=== PATIENT | female | born 1995 | race Caucasian/White ===

== ENCOUNTER 2016-07-03 11:27 | Inpatient (IN) ==
--- NOTE | 2016-07-03 12:07 | Emergency Department Note ---
Disposition Clinical Impression: Depression, Suicidal ideation, Urinary tract infection Disposition: Admitted As Inpatient Condition: Good Referrals: NO,PCP [Primary Care Provider] - Forms: ED Satisfaction Letter Time of Disposition: 14:29 Psych HPI - General Chief Complaint: ED Psychiatric Symptoms Stated Complaint: SI Time Seen by Provider: 07/03/16 11:39 Source: patient Mode of arrival: ambulatory Nursing Notes Reviewed: Yes Vital Signs Reviewed: Yes - History of Present Illness HPI Narrative: 20 female presents emergency room for thoughts of hurting herself. Was sent in by her counselor today. Patient has had increased cutting to the left upper extremity as well as to the right thigh. Patient states she does want to hurt herself by cutting her wrists. This is ongoing for the past few days. She denies any drugs or alcohol. She has been compliant with her Lexapro. No other complaints at this time. She denies any homicidal thoughts. Pt complaint: suicidal ideation, feels depressed Onset (ago): day(s) Duration: constant History of similar episodes: Yes Improves with: none Worsens with: none Alleged intoxication: No Associated Psychiatric Symptoms: depression, suicidal ideation Associated symptoms: Reports: denies other symptoms Traumatic symptoms: denies traumatic injury Treatments prior to arrival: none Self harm or harm to others: admits thoughts of self harm, has plan - Related Data Previous Rx's Medication Instructions Recorded HYDROcodone/Acet 5/325 mg [[place] 1 tab PO Q4H PRN #25 tab 03/10/16 5-325 mg] Ibuprofen [Motrin] 600 mg PO Q6HR PRN #40 tablet 03/10/16 Ibuprofen [Motrin] 600 mg PO Q6HR PRN #60 tab 03/10/16 Allergies Allergy/AdvReac Type Severity Reaction Status Date / Time Amoxicillin [From Augmentin] Allergy Anaphylaxis Verified 07/03/16 11:28 clavulanic acid Allergy Anaphylaxis Verified 07/03/16 11:28 [From Augmentin] All systems ED: reviewed and negative except as stated. Constitutional: Reports: as per HPI Eyes: Reports: as per HPI Cardiovascular: Reports: as per HPI Respiratory: Reports: as per HPI Gastrointestinal: Reports: as per HPI Musculoskeletal: Reports: as per HPI Integumentary: Reports: as per HPI Neurological: Reports: as per HPI Psychiatric: Reports: depression, suicidal thoughts. Denies: homicidal thoughts Endocrine: Reports: as per HPI Hematological/Lymphatic: Reports: as per HPI Allergic/Immunologic: Reports: as per HPI Past Medical History - Past Medical History Medical history: Reports: no medical history Psychiatric history: Reports: anxiety - Social History Smoking Status: Current every day smoker Smokeless Tobacco Status: No Alcohol use: Reports: none Drug use: Reports: none Physical Exam - General Limitations: no limitations General appearance: alert, in no apparent distress - Head Head exam: atraumatic, normocephalic - Neck Neck exam: Present: normal inspection - Chest Chest inspection: Present: normal inspection, symmetric chest wall rise - Respiratory Respiratory exam: Present: normal lung sounds bilaterally - Cardiovascular Cardiovascular exam: Present: regular rate, normal rhythm - Abdominal Exam Abdominal exam: Present: soft, Non-Tender - Extremities Exam Extremities exam: Present: normal inspection - Expanded Lower Extremity Exam Hip/Pelvis exam: Present: normal inspection - Neurological Exam Neurological exam: Present: alert, oriented X3 - Psychiatric Psychiatric exam: Present: depressed, suicidal ideation. Absent: homicidal ideation - Skin Skin exam: Present: other (Multiple linear cutting poole to the left upper extremity throughout the left forearm. Some range approximately 4 inches long. No signs of infection. She has a few track poole from cutting located to the medial aspect of the right thigh. No signs of infection.) Course Vital Signs Temperature 98.7 F 07/03/16 11:28 Pulse Rate 93 07/03/16 11:28 Respiratory Rate 18 07/03/16 11:28 Blood Pressure 122/84 07/03/16 11:28 O2 Sat by Pulse Oximetry 98 07/03/16 11:28 Temperature 98.7 F 07/03/16 11:28 Pulse Rate 93 07/03/16 11:28 Respiratory Rate 18 07/03/16 11:28 Blood Pressure 122/84 07/03/16 11:28 O2 Sat by Pulse Oximetry 98 07/03/16 11:28 Oxygen Delivery Oxygen Delivery Room Air Psych - MDM Narrative Medical decision making narrative: We will admit to psych. Treat for UTI. [place] slip. - Lab Data Result diagrams: 07/03/16 12:01 07/03/16 12:01 Lab Results 07/03/16 07/03/16 07/03/16 Range/Units 11:53 11:53 11:53 WBC (4.3-11.1) K/mcL RBC (3.82-4.97) M/mcL Hgb (11.5-15.4) g/dL Hct (35.3-44.9) % MCV (83.0-100.0) fL MCH (28.0-33.3) pg MCHC (31.6-35.5) g/dL RDW (11.5-14.5) % Plt Count (140-400) K/mcL MPV (9.4-12.4) fL Immature Gran % (0-4) % Seg Neutrophils % % Lymphocytes % % Monocytes % % Eosinophils % % Basophils % % Neutrophils # (1.6-8.9) K/mcL Lymphocytes # (0.6-4.6) K/mcL Monocytes # (0.0-1.3) K/mcL Eosinophils # (0.0-0.6) K/mcL Basophils # (0.0-0.2) K/mcL Sodium (136-145) mEq/L Potassium (3.5-4.5) mEq/L Chloride (98-109) mEq/L Carbon Dioxide (19-29) mEq/L BUN (7-20) mg/dL Creatinine (0.57-1.11) mg/dL Est GFR ( Amer) (> 60) Est GFR (Non-Af Amer) (> 60) BUN/Creatinine Ratio (6-26) Glucose (70-99) mg/dL Calculated Osmolality (280-300) Calcium (8.6-10.8) mg/dL TSH (0.350-4.840) mcIU/mL Urine Color Dark Yellow (Yellow) Urine Clarity Cloudy A (Clear) Urine pH 5.5 (5.0-8.0) pH Units Ur Specific [place] > 1.030 H (1.010-1.025) Urine Protein Negative (Neg-Trace) mg/dL Urine Glucose (UA) Normal (Normal) mg/dL Urine Ketones Negative (Negative) mg/dL Urine Blood Negative (Negative) Urine Nitrite Negative (Negative) Urine Bilirubin Small H (Negative) Urine Urobilinogen Normal (Normal) mg/dL Ur Leukocyte Esterase Moderate H (Negative) Urine Microscopic RBC 0-3 (0-3) per hpf Urine Microscopic WBC 50-100 H (0-3) per hpf Ur Squamous Epith Cells Many H (None-Few) per lpf Urine Bacteria Few (None-Few) per hpf Hyaline Casts Test Not Performed Urine Yeast Test Not Performed Urine Test Negative (Negative) Salicylates (15-30) mg/dL Urine Opiates Screen Negative (Zgtzqr=880) ng/mL Acetaminophen (10-30) mcg/mL Ur Barbiturates Screen Negative (Dzbwxo=544) ng/mL Ur Phencyclidine Scrn Negative (Cutoff=25) ng/mL Ur Amphetamines Screen Negative (Jzueyb=2150) ng/mL U Benzodiazepines Scrn Negative (Mmvjex=827) ng/mL Urine Cocaine Screen Negative (Cutoff= 300) ng/mL U Marijuana (THC) Screen Positive H (Cutoff = 50) ng/mL Ethyl Alcohol (0-10) mg/dL 07/03/16 07/03/16 Range/Units 12:01 12:01 WBC 4.9 (4.3-11.1) K/mcL RBC 4.31 (3.82-4.97) M/mcL Hgb 12.8 (11.5-15.4) g/dL Hct 38.2 (35.3-44.9) % MCV 88.6 (83.0-100.0) fL MCH 29.7 (28.0-33.3) pg MCHC 33.5 (31.6-35.5) g/dL RDW 13.4 (11.5-14.5) % Plt Count 229 (140-400) K/mcL MPV 10.3 (9.4-12.4) fL Immature Gran % 0.2 (0-4) % Seg Neutrophils % 35.9 % Lymphocytes % 52.0 % Monocytes % 10.3 % Eosinophils % 1.0 % Basophils % 0.6 % Neutrophils # 1.8 (1.6-8.9) K/mcL Lymphocytes # 2.5 (0.6-4.6) K/mcL Monocytes # 0.5 (0.0-1.3) K/mcL Eosinophils # 0.1 (0.0-0.6) K/mcL Basophils # 0.0 (0.0-0.2) K/mcL Sodium 139 (136-145) mEq/L Potassium 3.6 (3.5-4.5) mEq/L Chloride 107 (98-109) mEq/L Carbon Dioxide 24 (19-29) mEq/L BUN 15 (7-20) mg/dL Creatinine 0.80 (0.57-1.11) mg/dL Est GFR ( Amer) > 60 (> 60) Est GFR (Non-Af Amer) > 60 (> 60) BUN/Creatinine Ratio 19 (6-26) Glucose 92 (70-99) mg/dL Calculated Osmolality 288 (280-300) Calcium 9.1 (8.6-10.8) mg/dL TSH 3.040 (0.350-4.840) mcIU/mL Urine Color (Yellow) Urine Clarity (Clear) Urine pH (5.0-8.0) pH Units Ur Specific [place] (1.010-1.025) Urine Protein (Neg-Trace) mg/dL Urine Glucose (UA) (Normal) mg/dL Urine Ketones (Negative) mg/dL Urine Blood (Negative) Urine Nitrite (Negative) Urine Bilirubin (Negative) Urine Urobilinogen (Normal) mg/dL Ur Leukocyte Esterase (Negative) Urine Microscopic RBC (0-3) per hpf Urine Microscopic WBC (0-3) per hpf Ur Squamous Epith Cells (None-Few) per lpf Urine Bacteria (None-Few) per hpf Hyaline Casts Urine Yeast Urine Test (Negative) Salicylates < 5.0 L (15-30) mg/dL Urine Opiates Screen (Uiqlaa=834) ng/mL Acetaminophen < 1.0 L (10-30) mcg/mL Ur Barbiturates Screen (Eddbma=105) ng/mL Ur Phencyclidine Scrn (Cutoff=25) ng/mL Ur Amphetamines Screen (Ksjwya=7407) ng/mL U Benzodiazepines Scrn (Rktlqq=244) ng/mL Urine Cocaine Screen (Cutoff= 300) ng/mL U Marijuana (THC) Screen (Cutoff = 50) ng/mL Ethyl Alcohol < 10 (0-10) mg/dL Psychiatric Medical Clearance - Medical Clearance Checklist Medical History: No Social History Section defined Current Vitals: Last Vital Signs Temp 98.7 F 07/03/16 11:28 Pulse 93 07/03/16 11:28 Resp 18 07/03/16 11:28 BP 122/84 07/03/16 11:28 Pulse Ox 98 07/03/16 11:28 Psychiatric Lab Panel: Drug Levels and Toxicity 07/03/16 07/03/16 11:53 12:01 Urine Opiates Screen Negative Acetaminophen < 1.0 L Ur Barbiturates Screen Negative Ur Phencyclidine Scrn Negative Ur Amphetamines Screen Negative U Benzodiazepines Scrn Negative Urine Cocaine Screen Negative U Marijuana (THC) Screen Positive H Ethyl Alcohol < 10 Abnormal Labs: Abnormal lab results Urine Clarity Cloudy (Clear) A 07/03/16 11:53 Ur Specific [place] > 1.030 (1.010-1.025) H 07/03/16 11:53 Urine Bilirubin Small (Negative) H 07/03/16 11:53 Ur Leukocyte Esterase Moderate (Negative) H 07/03/16 11:53 Urine Microscopic WBC 50-100 per hpf (0-3) H 07/03/16 11:53 Ur Squamous Epith Cells Many per lpf (None-Few) H 07/03/16 11:53 Salicylates < 5.0 mg/dL (15-30) L 07/03/16 12:01 Acetaminophen < 1.0 mcg/mL (10-30) L 07/03/16 12:01 U Marijuana (THC) Screen Positive ng/mL (Cutoff = 50) H 07/03/16 11:53 Statement of Medical Clearance: I have evaluated the patient, reviewed diagnostic information, and certify that the patient's medical condition is sufficiently stable that transfer to the psychiatric unit does not pose a significant risk of deterioration.
[2016-07-03 12:08] LABS: Basophils % 0.6 %; Eosinophils # 0.1 K/mcL (0.0-0.6); Hematocrit 38.2 % (35.3-44.9); Hemoglobin 12.8 g/dL (11.5-15.4); Immature Granulocytes % 0.2 % (0-4); Lymphocytes # 2.5 K/mcL (0.6-4.6); Mean Corpuscular HGB Conc 33.5 g/dL (31.6-35.5); Mean Corpuscular Hemoglobin 29.7 pg (28.0-33.3); Mean Corpuscular Volume 88.6 fL (83.0-100.0); Mean Platelet Volume 10.3 fL (9.4-12.4); Monocytes # 0.5 K/mcL (0.0-1.3); Monocytes % 10.3 %; Neutrophils # 1.8 K/mcL (1.6-8.9); Platelet Count 229 K/mcL (140-400); Red Blood Count 4.31 M/mcL (3.82-4.97); Red Cell Distribution Width 13.4 % (11.5-14.5); Segmented Neutrophils % 35.9 %
[2016-07-03 12:10] LABS: Bilirubin,Urine Small (Negative); Blood,Urine Negative (Negative); Clarity,Urine Cloudy (Clear); Color,Urine Dark Yellow (Yellow); Glucose,Urine (UA) Normal (Normal); Ketones,Urine Negative (Negative); Leukocyte Esterase,Urine Moderate (Negative); Nitrite,Urine Negative (Negative); PH,Urine 5.5 pH Units (5.0-8.0); Protein,Urine Negative (Neg-Trace); Specific Gravity,Urine > 1.030 (1.010-1.025); Urobilinogen,Urine Normal (Normal)
[2016-07-03 12:13] LABS: Bacteria,Urine Few per hpf (None-Few); RBC,Urine 0-3 per hpf (0-3); Squamous Epithelial Cell,Urine Many per lpf (None-Few); WBC,Urine 50-100 per hpf (0-3)
[2016-07-03 12:17] LABS: Amphetamine Screen,Urine Negative ng/mL (Cutoff=1000); Barbiturate Screen,Urine Negative ng/mL (Cutoff=200); Benzodiazepines Screen,Urine Negative ng/mL (Cutoff=200); Cannabinoid Screen,Urine Positive ng/mL (Cutoff = 50); Cocaine Screen,Urine Negative ng/mL (Cutoff= 300); Opiate Screen,Urine Negative ng/mL (Cutoff=300); Phencyclidine Screen,Urine Negative ng/mL (Cutoff=25)
[2016-07-03 12:21] LABS: BUN/Creatinine Ratio 19 (6-26); Blood Urea Nitrogen 15 mg/dL (7-20); Calcium 9.1 mg/dL (8.6-10.8); Carbon Dioxide 24 mEq/L (19-29); Chloride 107 mEq/L (98-109); Glucose 92 mg/dL (70-99); Osmolality,Calculated 288 (280-300); Potassium 3.6 mEq/L (3.5-4.5); Sodium 139 mEq/L (136-145); eGFR For African Americans > 60 (> 60); eGFR For Non-African Americans > 60 (> 60)
[2016-07-03 12:22] LABS: Acetaminophen < 1.0 mcg/mL (10-30); Ethanol < 10 mg/dL (0-10); Salicylate < 5.0 mg/dL (15-30)
[2016-07-03] MEDS: Nitrofurantoin (BID) 100 MG CAPSULE PO SCH ×2 (14:23→17:29)
[2016-07-03] MEDS ORDERED: *HR* LORazepam 2 MG/ML VIAL IM PRN (15:02)
[2016-07-03] MEDS ORDERED: Nicotine 2 MG GUM BC PRN (15:02)
[2016-07-03] MEDS ORDERED: Haloperidol Lactate 5 MG/ML VIAL IM PRN (15:02)
[2016-07-03] MEDS ORDERED: traZODone 50 MG TABLET PO PRN (15:02)
[2016-07-03] MEDS ORDERED: Mag Hydrox/Al Hydrox/Simeth 30 ML UDC PO PRN (15:02)
[2016-07-03] MEDS ORDERED: *HR* LORazepam 1 MG TABLET PO PRN (15:02)
[2016-07-03] MEDS ORDERED: MOM Conc 10 ML UD.LIQ PO PRN (15:02)
[2016-07-03] MEDS ORDERED: hydrOXYzine pamoate 25 MG CAPSULE PO PRN (15:02)
[2016-07-03] MEDS ORDERED: Nitrofurantoin (BID) 100 MG CAPSULE PO SCH ×2 (17:00)
[2016-07-04] MEDS: Nitrofurantoin (BID) 100 MG CAPSULE PO SCH ×2 (08:26→16:46)
--- NOTE | 2016-07-04 11:03 | Psychiatry History & Physical ---
Date of Encounter: 07/05/16 Time of Encounter: 10:00 History of Present Illness Medicare Admission Attestation: For traditional Medicare patients the provided hospital inpatient services are reasonable and necessary and in the case of services not specified as inpatient -only under 42 CFR 419.22 (n), that they are appropriately provided as inpatient services in accordance 42 CFR 412.3. For Critical Access Hospital the patient may reasonably be expected to be discharged or transferred to a hospital within 96 hours after admission to the Critical Access Hospital. Admitted From: Emergency Dept History of Present Illness: Ms. Melendez is a 20 year old female admitted from the emergency room for evaluation treatment of suicidal ideation with plan to overdose on medication. Patient stated that she has been having increased stress at home with her family and related to multiple stressors one of them the patient had an ectopic in December and underwent surgery and lost her which was her first . she was started to see a counselor through her OBGYN doctor. she was also given a prescription for Lexapro and she believe it did help her anxiety however , she had side effects that she could not tolerate. Patient stated that she had experienced depression when she was freshman in high school and she cannot identify precipitating factor or crisis. She also has been cutting herself when she is depressed and stressed out. she has some recent cuts on left forearm that are superficial. Patient had no previous hospitalization or formal outpatient psychiatric treatment. Patient has a high school diploma, went to college for 1 semester and dropped out. 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 Patient admitted to using marijuana regularly and alcohol also has been using heroin in the past and different forms including IV. Never had any substance abuse treatment. Past Med Surg Social Fam HX - Past Medical History Medical history: no medical history - Past Psychiatric History Psychiatric history: Reports: no psych history. Denies: previous psychiatric hospitalization - Social History Smoking Status: Current every day smoker Smokeless Tobacco Status: No Alcohol use: none Drug use: none Medications & Allergies Escitalopram [Lexapro] 10 mg PO DAILY 07/03/16 [History] Levonorgestrel-Ethin Estradiol [Levonor-Eth Estrad 0.15-0.03] 1 each PO DAILY [History] Allergies Amoxicillin [From Augmentin] Allergy (Verified 07/03/16 11:28) Anaphylaxis clavulanic acid [From Augmentin] Allergy (Verified 07/03/16 11:28) Anaphylaxis Review of Systems Psychiatric: Reports: depression, anxiety, suicidal ideation Mental Status Exam Patient orientation: Yes Person, Yes Time, Yes Place Level of alertness: Alert Patient appearance: Appropriate, Well Groomed Additional observations: Multiple superficial cuts on the left forearm Behavior: calm, cooperative, anxious Psychomotor activity: Normal Eye contact: Maintains Eye Contact Mood description: Depressed, Anxious Affect description: congruent with mood, constricted Speech pattern: Normal rate, Normal rhythm, Normal tone Speech volume: Normal Thought process: Linear, Goal Oriented Thought content: Yes Suicidal ideation, No Homicidal ideation, No Overt delusions Perceptual disturbances: No Auditory hallucinations, No Visual hallucinations Attention span: Capable of Focused Attention Memory description: Grossly Intact Patient reliability: Reliable Historian Intelligence estimate: Average Judgment: Limited Insight: Partial Results - Vital Signs Vital signs: Temp Pulse Resp BP Pulse Ox 98.4 F 101 16 119/84 98 07/04/16 09:00 07/04/16 09:00 07/04/16 09:00 07/04/16 09:00 07/03/16 11:28 - Labs Labs: Laboratory Last Values WBC 4.9 K/mcL (4.3-11.1) 07/03/16 12:01 RBC 4.31 M/mcL (3.82-4.97) 07/03/16 12:01 Hgb 12.8 g/dL (11.5-15.4) 07/03/16 12:01 Hct 38.2 % (35.3-44.9) 07/03/16 12:01 MCV 88.6 fL (83.0-100.0) 07/03/16 12:01 MCH 29.7 pg (28.0-33.3) 07/03/16 12:01 MCHC 33.5 g/dL (31.6-35.5) 07/03/16 12:01 RDW 13.4 % (11.5-14.5) 07/03/16 12:01 Plt Count 229 K/mcL (140-400) 07/03/16 12:01 MPV 10.3 fL (9.4-12.4) 07/03/16 12:01 Immature Gran % 0.2 % (0-4) 07/03/16 12:01 Seg Neutrophils % 35.9 % 07/03/16 12:01 Lymphocytes % 52.0 % 07/03/16 12:01 Monocytes % 10.3 % 07/03/16 12:01 Eosinophils % 1.0 % 07/03/16 12:01 Basophils % 0.6 % 07/03/16 12:01 Neutrophils # 1.8 K/mcL (1.6-8.9) 07/03/16 12:01 Lymphocytes # 2.5 K/mcL (0.6-4.6) 07/03/16 12:01 Monocytes # 0.5 K/mcL (0.0-1.3) 07/03/16 12:01 Eosinophils # 0.1 K/mcL (0.0-0.6) 07/03/16 12:01 Basophils # 0.0 K/mcL (0.0-0.2) 07/03/16 12:01 Sodium 139 mEq/L (136-145) 07/03/16 12:01 Potassium 3.6 mEq/L (3.5-4.5) 07/03/16 12:01 Chloride 107 mEq/L (98-109) 07/03/16 12:01 Carbon Dioxide 24 mEq/L (19-29) 07/03/16 12:01 BUN 15 mg/dL (7-20) 07/03/16 12:01 Creatinine 0.80 mg/dL (0.57-1.11) 07/03/16 12:01 Est GFR ( Amer) > 60 (> 60) 07/03/16 12:01 Est GFR (Non-Af Amer) > 60 (> 60) 07/03/16 12:01 BUN/Creatinine Ratio 19 (6-26) 07/03/16 12:01 Glucose 92 mg/dL (70-99) 07/03/16 12:01 Calculated Osmolality 288 (280-300) 07/03/16 12:01 Calcium 9.1 mg/dL (8.6-10.8) 07/03/16 12:01 TSH 3.040 mcIU/mL (0.350-4.840) 07/03/16 12:01 Urine Color Dark Yellow (Yellow) 07/03/16 11:53 Urine Clarity Cloudy (Clear) A 07/03/16 11:53 Urine pH 5.5 pH Units (5.0-8.0) 07/03/16 11:53 Ur Specific [place] > 1.030 (1.010-1.025) H 07/03/16 11:53 Urine Protein Negative mg/dL (Neg-Trace) 07/03/16 11:53 Urine Glucose (UA) Normal mg/dL (Normal) 07/03/16 11:53 Urine Ketones Negative mg/dL (Negative) 07/03/16 11:53 Urine Blood Negative (Negative) 07/03/16 11:53 Urine Nitrite Negative (Negative) 07/03/16 11:53 Urine Bilirubin Small (Negative) H 07/03/16 11:53 Urine Urobilinogen Normal mg/dL (Normal) 07/03/16 11:53 Ur Leukocyte Esterase Moderate (Negative) H 07/03/16 11:53 Urine Microscopic RBC 0-3 per hpf (0-3) 07/03/16 11:53 Urine Microscopic WBC 50-100 per hpf (0-3) H 07/03/16 11:53 Ur Squamous Epith Cells Many per lpf (None-Few) H 07/03/16 11:53 Urine Bacteria Few per hpf (None-Few) 07/03/16 11:53 Hyaline Casts Test Not Performed 07/03/16 11:53 Urine Yeast Test Not Performed 07/03/16 11:53 Urine Test Negative (Negative) 07/03/16 11:53 Salicylates < 5.0 mg/dL (15-30) L 07/03/16 12:01 Urine Opiates Screen Negative ng/mL (Cnyahv=296) 07/03/16 11:53 Acetaminophen < 1.0 mcg/mL (10-30) L 07/03/16 12:01 Ur Barbiturates Screen Negative ng/mL (Kwrduf=769) 07/03/16 11:53 Ur Phencyclidine Scrn Negative ng/mL (Cutoff=25) 07/03/16 11:53 Ur Amphetamines Screen Negative ng/mL (Tzvycw=9356) 07/03/16 11:53 U Benzodiazepines Scrn Negative ng/mL (Sfzdnp=198) 07/03/16 11:53 Urine Cocaine Screen Negative ng/mL (Cutoff= 300) 07/03/16 11:53 U Marijuana (THC) Screen Positive ng/mL (Cutoff = 50) H 07/03/16 11:53 Ethyl Alcohol < 10 mg/dL (0-10) 07/03/16 12:01 Assessment and Plan (1) Major depression, recurrent Current visit: Yes Status: Acute Plan: Admit inpatient for safety and stabilization, Close observation, Suicide Precautions per unit protocol, Encourage participation in unit milieu, Group Therapy, Monitor sleep, Monitor appetite Additional Plan: We will start patient on Effexor XR 75 mg daily benefits side effects were discussed she is agreeable to start will monitor. Risks, benefits, side effects, alternatives discussed w/pt: Yes Patient agreeable to treatment: Yes Estimated Length of Stay (Days): 5 Qualifiers: Active/Remission status: currently active Psychotic features: without psychotic features Qualified Code(s): F33.2 - Major depressive disorder, recurrent severe without psychotic features (2) Polysubstance dependence including opioid type drug, episodic abuse Current visit: Yes Status: Acute Plan: Admit inpatient for safety and stabilization, Close observation, Suicide Precautions per unit protocol, Encourage participation in unit milieu, Group Therapy, Monitor sleep, Monitor appetite Risks, benefits, side effects, alternatives discussed w/pt: Yes Patient agreeable to treatment: Yes
[2016-07-04] MEDS: Venlafaxine XR (24 HR) 75 MG CAP.ER.24H PO SCH (12:01)
[2016-07-04] MEDS: Acetaminophen 325 MG TABLET PO PRN ×2 (12:01→20:48)
[2016-07-05] MEDS: Venlafaxine XR (24 HR) 75 MG CAP.ER.24H PO SCH (08:33)
[2016-07-05] MEDS: Nitrofurantoin (BID) 100 MG CAPSULE PO SCH ×2 (08:33→16:43)
[2016-07-05 09:54] VITALS: BP 116/82
--- NOTE | 2016-07-05 14:49 | Discharge Summary ---
Date of Encounter: 07/05/16 Time of Encounter: 14:20 Diagnosis - Discharge Diagnosis (1) Major depression, recurrent Status: Acute Qualifiers: Active/Remission status: currently active Psychotic features: without psychotic features Qualified Code(s): F33.2 - Major depressive disorder, recurrent severe without psychotic features (2) Polysubstance dependence including opioid type drug, episodic abuse Status: Acute Medications - Discharge Medications Prescriptions: Nitrofurantoin (BID) [Macrobid] 100 mg PO BIDWM #20 capsule Venlafaxine XR (24 HR) [Effexor XR] 75 mg PO DAILY #30 cap.er.24h Levonorgestrel-Ethin Estradiol [Levonor-Eth Estrad 0.15-0.03] 1 each PO DAILY [History] Nitrofurantoin (BID) [Macrobid] 100 mg PO BIDWM #20 capsule 07/05/16 [Rx] Venlafaxine XR (24 HR) [Effexor XR] 75 mg PO DAILY #30 cap.er.24h 07/05/16 [Rx] Allergies Amoxicillin [From Augmentin] Allergy (Verified 07/03/16 11:28) Anaphylaxis clavulanic acid [From Augmentin] Allergy (Verified 07/03/16 11:28) Anaphylaxis Provider Date of admission: 07/03/16 14:32 Primary care physician: PCP NO Discharging clinician: Kevin Vizcaino Assessment and Plan - Patient/Caregiver Discharge Instructions Activity: resume usual activities as tolerated Diet: regular diet - Follow up Plan Follow up with: [facility] [Outside] - 08/08/16 1:15 pm (The above appointment is with Karen Reed. Please arrive 15 minutes early to complete paperwork. Please bring your insurance card, photo ID and medications in their original bottles. If you do not have insurance, bring proof of income to apply for the sliding fee scale. If you are unable to keep this appointment, 24 hour business notice of cancellation is expected. ) [facility] [Outside] - 07/31/16 4:30 pm (The above appointment is with Meseret Gonzáles. When you come to your first appointment, you will have an orientation to the agency and you will meet with a counselor. Please bring the following with you to your first visit to the clinic: 1) proof of household income (two consecutive pay stubs, social security award letter, bank statement, statement letter from [facility], child support statement, IRS 1040 or W2 form, or a statement from the person who financially supports you stating they help provide for your basic needs), 2) proof of residency (drivers license , a piece of mail showing your address, a statement from person you live with verifying you live at their address), 3) your social security card, 4) photo ID , 5) your insurance card (if you have commercial insurance you must call to obtain a prior authorization number before you arrive to your first appointment ) and 6) if you do not have insurance but have applied for Medicaid, please bring verification you have applied. ) Functional capacity at discharge: independent ambulation Overall status at discharge: Stable Disposition: Home, Self-Care Hospital Course Hospital course: Ms. Melendez is a 20 year old female admitted from the emergency room for evaluation of depression and suicidal ideation. For details of admission please see H&P On the unit patient medication where reviewed and adjusted. Lexapro was discontinued due to side effects and patient was started on Effexor XL 75 mg. She tolerated the medication and reported improved sleep and denied any suicidal ideation. She participated in group activities. Follow-up plans were completed by the social media content specialist. On discharge patient was medically stable and future oriented. - Time Spent with Patient Total time spent providing and/or coordinating discharge services: Greater than 30 minutes Quality - Multiple Antipsychotics Patient discharged on 2 or more antipsychotic medications: No Procedures - Procedures Procedures: Medication Management, Crisis Stabilization, Supportive Therapy, Group Therapy, Psychoeducational Therapy Mental Status Exam - Mental Status Exam Patient orientation: Yes Person, Yes Time, Yes Place Level of alertness: Alert Patient appearance: Appropriate, Well Groomed Behavior: calm, cooperative Psychomotor activity: Normal Eye contact: Maintains Eye Contact Mood description: Euthymic/stable Affect description: congruent with mood, full range Speech pattern: Normal rate, Normal rhythm, Normal tone Speech Volume: Normal Thought process: Linear, Goal Oriented Thought Content: No Suicidal ideation, No Homicidal ideation, No Overt delusions Perceptual Disturbances: No Auditory hallucinations, No Visual hallucinations Judgment: Limited Insight: Partial
== END 2016-07-05 18:00 | disposition home or self-care (01) | DRG 751 ==
LOC: EMEROO 11:27 → 1ANU 14:32
PROVIDERS: ADMIT Psychiatry & Neurology Psychiatry; ATTEND Psychiatry & Neurology Psychiatry

== ENCOUNTER → 2019-12-21 15:03 | Observation (INO) ==
[2019-12-21 13:20] LABS: Bacteria,Urine Few per hpf (None-Few); Bilirubin,Urine Negative (Negative); Blood,Urine Negative (Negative); Clarity,Urine Clear (Clear); Color,Urine Yellow (Yellow); Glucose,Urine (UA) Normal (Normal); Ketones,Urine Negative (Negative); Leukocyte Esterase,Urine Negative (Negative); Mucus,Urine Few per lpf (None-Few); Nitrite,Urine Negative (Negative); PH,Urine 6.5 pH Units (5.0-8.0); Protein,Urine 50 mg/dL (Neg-Trace); RBC,Urine 0-3 per hpf (0-3); Specific Gravity,Urine > 1.030 (1.010-1.025); Squamous Epithelial Cell,Urine Few per hpf (None-Few); WBC,Urine 0-3 per hpf (0-3)
[2019-12-21 14:32] LABS: Basophils % 0.1 %; Eosinophils % 0.4 %; Hematocrit 30.6 % (35.3-44.9); Hemoglobin 10.2 g/dL (11.5-15.4); Immature Granulocytes % 0.1 % (0-4); Lymphocytes % 27.6 %; Mean Corpuscular HGB Conc 33.3 g/dL (31.6-35.5); Mean Corpuscular Hemoglobin 31.1 pg (28.0-33.3); Mean Corpuscular Volume 93.3 fL (83.0-100.0); Mean Platelet Volume 10.9 fL (9.4-12.4); Monocytes # 0.5 K/mcL (0.0-1.3); Monocytes % 6.4 %; Neutrophils # 4.8 K/mcL (1.6-8.9); Platelet Count 263 K/mcL (140-400); Red Blood Count 3.28 M/mcL (3.82-4.97); Red Cell Distribution Width 12.5 % (11.5-14.5); Segmented Neutrophils % 65.4 %; White Blood Count 7.3 K/mcL (4.3-11.1)
[2019-12-21 14:48] LABS: Alanine Aminotransferase 61 Units/L (7-52); Albumin 3.3 g/dL (3.5-5.7); Alkaline Phosphatase 141 Units/L (34-104); Aspartate Amino Transferase 28 Units/L (13-39); Bilirubin,Direct 0.1 mg/dL (0.0-0.2); Bilirubin,Indirect 0.2 mg/dL (0.0-1.0); Bilirubin,Total 0.3 mg/dL (0.3-1.0); Carbon Dioxide 22 mEq/L (23-29); Chloride 106 mEq/L (98-107); Globulin 3.4 g/dL (2.4-3.5); Potassium 3.7 mEq/L (3.5-5.1); Sodium 136 mEq/L (136-145); Total Protein 6.7 g/dL (6.4-8.9); eGFR For African Americans > 60 (> 60); eGFR For Non-African Americans > 60 (> 60)
== END | disposition home or self-care (01) ==
LOC: 1NENULAB
PROVIDERS: ADMIT Obstetrics & Gynecology; ATTEND Obstetrics & Gynecology

== ENCOUNTER → 2020-01-23 21:13 | Observation (INO) ==
[2020-01-23 20:45] LABS: Bacteria,Urine Moderate per hpf (None-Few); Bilirubin,Urine Negative (Negative); Blood,Urine Negative (Negative); Calcium Oxalate Crystals,Urine Present; Clarity,Urine Turbid (Clear); Color,Urine Yellow (Yellow); Glucose,Urine (UA) Normal (Normal); Ketones,Urine Negative (Negative); Leukocyte Esterase,Urine Negative (Negative); Mucus,Urine Few per lpf (None-Few); Nitrite,Urine Negative (Negative); PH,Urine 6.5 pH Units (5.0-8.0); Protein,Urine 30 mg/dL (Neg-Trace); RBC,Urine 0-3 per hpf (0-3); Specific Gravity,Urine > 1.030 (1.010-1.025); Squamous Epithelial Cell,Urine Many per hpf (None-Few)
[2020-01-23 21:24] LABS: Candida DNA Not Detected (Not Detect); Gardnerella DNA Not Detected (Not Detect); Trichomonas DNA Not Detected (Not Detect)
== END | disposition home or self-care (01) ==
LOC: 1NENULAB
PROVIDERS: ADMIT Obstetrics & Gynecology; ATTEND Obstetrics & Gynecology

== ENCOUNTER → 2020-01-25 21:09 | Observation (INO) ==
[2020-01-25 20:56] LABS: Bacteria,Urine Few per hpf (None-Few); Bilirubin,Urine Negative (Negative); Blood,Urine Negative (Negative); Clarity,Urine Clear (Clear); Color,Urine Yellow (Yellow); Glucose,Urine (UA) Normal (Normal); Hyaline Casts,Urine Few per lpf (None Seen); Ketones,Urine 40 mg/dL (Negative); Leukocyte Esterase,Urine Negative (Negative); Mucus,Urine Moderate per lpf (None-Few); Nitrite,Urine Negative (Negative); Protein,Urine 50 mg/dL (Neg-Trace); Specific Gravity,Urine > 1.030 (1.010-1.025); Squamous Epithelial Cell,Urine Few per hpf (None-Few); Urobilinogen,Urine Normal (Normal); WBC,Urine 0-3 per hpf (0-3)
== END | disposition home or self-care (01) ==
LOC: 1NENULAB
PROVIDERS: ADMIT Obstetrics & Gynecology; ATTEND Obstetrics & Gynecology

== ENCOUNTER → 2020-02-07 03:55 | Observation (INO) ==
[2020-02-07 01:55] LABS: Bacteria,Urine Few per hpf (None-Few); Bilirubin,Urine Negative (Negative); Blood,Urine Negative (Negative); Clarity,Urine Clear (Clear); Color,Urine Yellow (Yellow); Glucose,Urine (UA) Normal (Normal); Ketones,Urine Trace mg/dL (Negative); Leukocyte Esterase,Urine Negative (Negative); Mucus,Urine Few per lpf (None-Few); Nitrite,Urine Negative (Negative); Protein,Urine 50 mg/dL (Neg-Trace); Specific Gravity,Urine > 1.030 (1.010-1.025); Squamous Epithelial Cell,Urine Few per hpf (None-Few); Urobilinogen,Urine Normal (Normal); WBC,Urine 0-3 per hpf (0-3)
[2020-02-07 03:13] LABS: Basophils % 0.1 %; Eosinophils % 0.4 %; Hematocrit 29.1 % (35.3-44.9); Hemoglobin 9.4 g/dL (11.5-15.4); Immature Granulocytes % 0.4 % (0-4); Lymphocytes # 2.3 K/mcL (0.6-4.6); Lymphocytes % 29.9 %; Mean Corpuscular HGB Conc 32.3 g/dL (31.6-35.5); Mean Corpuscular Hemoglobin 29.7 pg (28.0-33.3); Mean Corpuscular Volume 92.1 fL (83.0-100.0); Mean Platelet Volume 11.7 fL (9.4-12.4); Monocytes # 0.6 K/mcL (0.0-1.3); Monocytes % 7.6 %; Neutrophils # 4.8 K/mcL (1.6-8.9); Platelet Count 229 K/mcL (140-400); Red Blood Count 3.16 M/mcL (3.82-4.97); Red Cell Distribution Width 12.6 % (11.5-14.5); Segmented Neutrophils % 61.6 %; White Blood Count 7.8 K/mcL (4.3-11.1)
[2020-02-07 03:21] LABS: Protein/Creatinine Ratio,Urine 0.19 mg/mg (0.00-0.20)
[2020-02-07 03:31] LABS: Alanine Aminotransferase 31 Units/L (7-52); Aspartate Amino Transferase 25 Units/L (13-39); BUN/Creatinine Ratio 24 (6-26); Blood Urea Nitrogen 13 mg/dL (6-20); Lactate Dehydrogenase 166 Units/L (140-271); Uric Acid 3.4 mg/dL (2.3-7.6); eGFR For African Americans > 60 (> 60); eGFR For Non-African Americans > 60 (> 60)
== END | disposition home or self-care (01) ==
LOC: 1NENULAB
PROVIDERS: ADMIT Obstetrics & Gynecology; ATTEND Obstetrics & Gynecology